=== PATIENT | male | born 1990 | race Caucasian/White ===

== ENCOUNTER 2019-07-01 11:07 | Emergency (ER) | payer MEDICARE, MEDICAID ==
--- NOTE | 2019-07-01 11:28 | EDM.PDOC ---
ED HPI GENERAL MEDICAL PROBLEM - General Chief Complaint: Eye Problems Stated Complaint: SWOLLEN RT EYE Time Seen by Provider: 07/01/19 11:24 Source of Information: Reports: Patient History Limitations: Reports: No Limitations, Other (mental disability) - History of Present Illness INITIAL COMMENTS - FREE TEXT/NARRATIVE: HISTORY AND PHYSICAL: History of present illness: Patient is a 29-year-old male who presents to the ED today with concern of his right forehead that has been worsening and swelling over the past 1 day. Patient states he started having pain there yesterday and notices that of his right eyebrow. Patient states he has been scratching it and touching it and it has gotten more swollen today. Patient denies any health history. Patient denies any other symptoms or concerns. Patient denies fever, chills, chest pain, shortness of breath, or cough. Denies headache, neck stiff ness, change in vision, syncope, or near syncope. Denies nausea, vomiting, abdominal pain, diarrhea, constipation, or dysuria. Has not noted any blood in urine or stool. Patient has been eating and drinking appropriately. Review of systems: As per history of present illness and below otherwise all systems reviewed and negative. Past medical history: As per history of present illness and as reviewed below otherwise noncontributory. Surgical history: As per history of present illness and as reviewed below otherwise noncontributory. Social history: See social history for further information Family history: As per history of present illness and as reviewed below otherwise noncontributory. Physical exam: General: Patient is alert, oriented, and in no acute distress. Patient sitting comfortably on exam table. HEENT: See skin. Otherwise, atraumatic, normocephalic, pupils equal and reactive bilaterally, negative for conjunctival pallor or scleral icterus, mucous membranes moist, TMs normal bilaterally, throat clear, neck supple, nontender, trachea midline. No drooling or trismus noted. No meningeal signs. No hot potato voice noted. Lungs: Clear to auscultation, breath sounds equal bilaterally, chest nontender. Heart: S1S2, regular rate and rhythm without overt murmur Abdomen: Soft, nondistended, nontender. Negative for masses or hepatosplenomegaly. Negative for costovertebral tenderness. Pelvis: Stable nontender. Genitourinary: Deferred. Rectal: Deferred. Skin: There is a 2-3cm indurated acne vulgaris of the right eyebrow with secondary excoriations without drainage or fluctuance. Otherwise, intact, warm , dry. No lesions or rashes noted. Extremities: Atraumatic, negative for cords or calf pain. Neurovascular unremarkable. Neuro: Awake, alert, oriented. Cranial nerves II through XII unremarkable. Cerebellum unremarkable. Motor and sensory unremarkable throughout. Exam nonfocal. Notes: Although on exam this could be an inflammation of acne vulgaris, I do worry that patient continues to scratch the area and could be leading to an early secondary infection. I did thoroughly discuss this with patient and discussed the risks vs benefits of treatment with antibiotic at this time. Patient desires antibiotic. All risks vs benefits discussed. Discussed importance for follow-up with a primary care provider. Voices understanding and is agreeable to plan of care. Denies any further questions or concerns at this time. Diagnostics: None Therapeutics: None Prescription: Keflex Impression: Acne vulgaris Secondary skin infection, early Plan: 1. Take medication as prescribed. You can alternate ibuprofen and Tylenol as directed for pain and discomfort. 2. Follow-up with a primary care provider as discussed. Return to the ED as needed and as discussed. Definitive disposition and diagnosis as appropriate pending reevaluation and review of above. right eye Pain Score (Numeric/FACES): 1 - Related Data Allergies Allergy/AdvReac Type Severity Reaction Status Date / Time No Known Allergies Allergy Verified 07/01/19 11:27 Home Meds: Home Meds cephALEXin [Keflex] 500 mg PO BID 7 Days #14 cap 07/01/19 [Rx] ED ROS GENERAL - Review of Systems Review Of Systems: Comprehensive ROS is negative, except as noted in HPI. ED EXAM GENERAL W FULL EYE - Physical Exam Exam: See Below (see dictation) Course - Vital Signs Last Recorded V/S: Last Vital Signs Temp 97.3 F 07/01/19 11:25 Pulse 57 L 07/01/19 11:25 Resp 16 07/01/19 11:25 BP Pulse Ox 97 07/01/19 11:25 Departure - Departure Time of Disposition: 11:37 Disposition: Home, Self-Care 01 Clinical Impression: Acne vulgaris, Secondary infection of skin - Discharge Information Prescriptions: cephALEXin [Keflex] 500 mg PO BID 7 Days #14 cap Instructions: Acne, [id number] Referrals: PCP,None [Primary Care Provider] - Forms: ED Department Discharge Additional Instructions: The following information is given to patients seen in the emergency department who are being discharged to home. This information is to outline your options for follow-up care. We provide all patients seen in our emergency department with a follow-up referral. The need for follow-up, as well as the timing and circumstances, are variable depending upon the specifics of your emergency department visit. If you don't have a primary care physician on staff, we will provide you with a referral. We always advise you to contact your personal physician following an emergency department visit to inform them of the circumstance of the visit and for follow-up with them and/or the need for any referrals to a consulting specialist. The emergency department will also refer you to a specialist when appropriate. This referral assures that you have the opportunity for follow-up care with a specialist. All of these measure are taken in an effort to provide you with optimal care, which includes your follow-up. Under all circumstances we always encourage you to contact your private physician who remains a resource for coordinating your care. When calling for follow-up care, please make the office aware that this follow-up is from your recent emergency room visit. If for any reason you are refused follow-up, please contact the [facility] at and asked to speak to the emergency department charge nurse. [facility] [address] [place] [address] [place] [address] 1. Take medication as prescribed. You can alternate ibuprofen and Tylenol as directed for pain and discomfort. 2. Follow-up with a primary care provider as discussed. Return to the ED as needed and as discussed. Sepsis Event Note - Evaluation Sepsis Screening Result: No Definite Risk - Focused Exam Vital Signs: Vital Signs Temp Pulse Resp Pulse Ox 07/01/19 11:25 97.3 F 57 L 16 97 Date Exam was Performed: 07/01/19 Time Exam was Performed: 11:44
== END 2019-07-01 11:46 | disposition home or self-care (01) ==
LOC: MW.ED 11:07
CPT/HCPCS: 99283

== ENCOUNTER 2023-05-13 01:23 | Emergency (ER) | payer MEDICARE, MEDICAID ==
[2023-05-13] MEDS ORDERED: Ondansetron 4 MG/2 ML SDV IVPUSH ONE (01:31)
[2023-05-13] MEDS ORDERED: Sodium Chloride 0.9% 1,000 ML IV ONE (01:31)
[2023-05-13 01:38] LABS: BASOPHILS ABSOLUTE AUTO 0.03 K/uL (0.00-0.20); BASOPHILS PERCENT AUTO 0.2 % (0.0-1.0); EOSINOPHILS ABSOLUTE AUTO 0.11 K/uL (0.00-0.45); EOSINOPHILS PERCENT AUTO 0.6 % (0.0-6.0); HEMATOCRIT 48.1 % (42.0-52.0); HEMOGLOBIN 16.9 g/dL (14.0-18.0); IMMATURE GRAN ABSOLUTE AUTO 0.08 K/uL (0.00-0.05); IMMATURE GRAN PERCENT AUTO 0.4 % (0.0-0.4); LYMPHOCYTES ABSOLUTE AUTO 0.59 K/uL (1.00-4.80); LYMPHOCYTES PERCENT AUTO 3.3 % (24.0-44.0); MEAN CORPUSCULAR HEMOGLOBIN 28.7 pg (28.0-32.0); MEAN CORPUSCULAR HGB CONC 35.1 g/dL (32.0-36.0); MEAN CORPUSCULAR VOLUME 81.8 fL (83.0-99.0); MEAN PLATELET VOLUME 8.7 fL (9.4-12.4); MONOCYTES PERCENT AUTO 5.6 % (0.0-8.0); NEUTROPHILS ABSOLUTE AUTO 16.17 K/uL (1.80-7.70); NEUTROPHILS PERCENT AUTO 89.9 % (41.0-71.0); PLATELET COUNT,PLT 291 K/uL (150-400); RED BLOOD CELL COUNT 5.88 M/uL (4.52-5.90); WHITE BLOOD CELL COUNT,WBC 17.98 K/uL (3.9-11.3)
[2023-05-13 01:59] LABS: A/G RATIO 1.3 (0.9-1.6); ALBUMIN 4.6 g/dL (3.4-5.0); BILIRUBIN TOTAL 0.8 mg/dL (0.2-1.0); CALCIUM 9.4 mg/dL (8.5-10.1); CARBON DIOXIDE,CO2 25.1 mmol/L (21.0-32.0); CREATININE 1.2 mg/dL (0.8-1.3); EST CRCL DRUG DOSING (CG) 84.16 mL/min; POTASSIUM,K 4.3 mmol/L (3.5-5.1); PROTEIN TOTAL,TP 8.2 g/dL (6.4-8.2)
== END 2023-05-13 02:35 | disposition home or self-care (01) ==
LOC: MW.ED 01:23
DX: R11.2 Nausea with vomiting, unspecified (principal); R19.7 Diarrhea, unspecified
CPT/HCPCS: 36415; 80053; 83690; 85025; 87324; 96361; 96374; 99284; J2405; J7030

== ENCOUNTER 2024-04-04 14:05 | Emergency (ER) | payer MEDICARE, MEDICAID ==
[2024-04-04] MEDS: Diphtheria,Pertussis(Acell),Tetanus Vaccine 0.5 ML Syringe IM ONE (15:07)
== END 2024-04-04 15:25 | disposition home or self-care (01) ==
LOC: MW.ED 14:05
DX: L53.9 Erythematous condition, unspecified (principal); Z23 Encounter for immunization; Z75.8 Other problems related to medical facilities and other health care; W54.0XXA Bitten by dog, initial encounter
CPT/HCPCS: 90471; 90715; 99283; 99283-25